=== PATIENT | female | born 1950 | race Caucasian/White ===

== ENCOUNTER 2022-05-13 07:16 | Day surgery (SDC) | payer BC ==
[2022-05-06 10:41] VITALS: BMI 31.3
[2022-05-13] MEDS ORDERED: LIDOCAINE HCL/PF 2% SDV 5ML VIAL ONE (07:26)
[2022-05-13] MEDS ORDERED: PROPOFOL 120 ML ONE (07:27)
[2022-05-13 07:34] VITALS: RESP 16
[2022-05-13 08:45] VITALS: TEMP 97.5
[2022-05-13 09:16] VITALS: BP 121/62; PULSE 64
== END 2022-05-13 09:21 | disposition home or self-care (01) ==
LOC: FASU-ENDO 07:16
PROVIDERS: ATTEND Internal Medicine Gastroenterology
PROC: 3E0H8KZ Introduction of Other Diagnostic Substance into Lower GI, Via Natural or Artificial Opening Endoscopic (ICD-10-PCS; 2022-05-13)
PROC: 0DBP8ZX Excision of Rectum, Via Natural or Artificial Opening Endoscopic, Diagnostic (ICD-10-PCS; principal; 2022-05-13 08:14)
DX: Z12.11 Encounter for screening for malignant neoplasm of colon (principal); D12.8 Benign neoplasm of rectum; K57.30 Diverticulosis of large intestine without perforation or abscess without bleeding
CPT/HCPCS: 88305-TC; 88342-TC